=== PATIENT | male | born 1970 | race African-American/Black ===

== ENCOUNTER 2018-12-06 21:43 | Emergency (ER) | payer MEDICARE, OTHER ==
[~2018-12-06] VITALS: Ht 180.3 cm; Wt 92.2 kg
[2018-12-06 21:50] VITALS: Ht 180.3 cm; Wt 92.2 kg
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
[2018-12-07] MEDS ORDERED: KETOROLAC 30 MG INJ IV STA (00:45)
[2018-12-07 01:02] VITALS: BP 123/76; PULSE 86; RESP 20
== END 2018-12-07 01:14 | disposition home or self-care (01) ==
LOC: E/R 21:43
DX: G89.4 Chronic pain syndrome (principal); I10 Essential (primary) hypertension; Z21 Asymptomatic human immunodeficiency virus [HIV] infection status
CPT/HCPCS: 93005; 96374; 99284; J1885